=== PATIENT | male | born 1965 | race Caucasian/White ===

== ENCOUNTER 2020-10-25 10:04 | Emergency (ER) | payer BC ==
[~2020-10-25] VITALS: Ht 185.4 cm; Wt 99.8 kg
[2020-10-25 10:12] VITALS: BP_SYST 152
[2020-10-25] MEDS ORDERED: ceFAZolin SODIUM 1 GM VIAL IM ONE (10:30)
[2020-10-25] MEDS ORDERED: LIDOCAINE 1%, 20 ML MDV 20 ML ONE (10:32)
[2020-10-25] MEDS ORDERED: BACITRACIN 1 GM OINT TP ONE (10:42)
[2020-10-25] MEDS ORDERED: LIDOCAINE 1% 10 MG/ML, 20 ML MDV INJ ONE (10:45)
[2020-10-25 10:58] VITALS: BP_SYST 157
== END 2020-10-25 10:58 | disposition home or self-care (01) ==
LOC: SED 10:04
DX: L02.416 Cutaneous abscess of left lower limb (principal); I10 Essential (primary) hypertension
CPT/HCPCS: 10060; 96372; 99283; J0690; J2001